=== PATIENT | female | born 1985 | race Caucasian/White ===

== ENCOUNTER 2022-08-27 05:25 | Inpatient (IN) | payer BC ==
[2022-08-26 12:27] LABS: Hemoglobin 11.9 g/dL (12.0-15.5); Platelet Count 199 10x3/uL (150-450)
[2022-08-26 12:34] LABS: SARS-CoV-2 NAA Rapid Test Not Detected (NotDetected)
[2022-08-26 12:46] LABS: Syphilis Antibody Nonreactive (Nonreactive); Syphilis Antibody Index 0.03 S/CO (<1.00 Non-Reactive)
[2022-08-26 12:48] LABS: HBSAg Index 0.21 S/CO (0-0.99); Hep B Surf Ag Non-Reactive S/CO (NonReactive)
[2022-08-27 06:23] VITALS: BMI 41.2
[2022-08-27] MEDS ORDERED: Promethazine HCl 25 MG SUPP PR PRN (07:16)
[2022-08-27] MEDS ORDERED: Ondansetron PF 4 MG/2 ML Vial IVP PRN ×3 (07:16→11:24)
[2022-08-27] MEDS ORDERED: Naloxone HCl 0.4 mg/ml Vial IVP PRN ×2 (07:16)
[2022-08-27] MEDS ORDERED: Naloxone HCl 0.4 mg/ml Vial IV PRN (07:16)
[2022-08-27] MEDS ORDERED: Fentanyl 100 MCG/2 ML VIAL SLOW IVP PRN (07:16)
[2022-08-27] MEDS ORDERED: Moisturizing Cream (Eucerin) 113 GM JAR TOP PRN (07:16)
[2022-08-27] MEDS ORDERED: Ketorolac Tromethamine 30 MG/ML VIAL IVP PRN (07:16)
[2022-08-27] MEDS ORDERED: Meperidine HCl/PF 25 MG/ML VIAL SLOW IVP PRN (07:16)
[2022-08-27] MEDS ORDERED: Promethazine HCl 25 MG/ML VIAL IM PRN ×2 (07:16→07:26)
[2022-08-27] MEDS ORDERED: diphenhydrAMINE 50 MG/ML VIAL IVP PRN (07:16)
[2022-08-27] MEDS ORDERED: Ondansetron HCl/PF 4 MG/2 ML Vial IVP PRN (07:16)
[2022-08-27] MEDS ORDERED: Morphine PF 10 MG/10 ML VIAL ONE (07:22)
[2022-08-27] MEDS ORDERED: PHENYLEPHRINE-NS 100 MCG/ML 10 ML SYRINGE ONE (07:23)
[2022-08-27] MEDS ORDERED: Ketorolac Tromethamine 30 MG/ML VIAL ONE (07:23)
[2022-08-27] MEDS ORDERED: Glycopyrrolate 0.2 MG/ML 5 ML SYRINGE ONE (07:23)
[2022-08-27] MEDS ORDERED: Phenylephrine 40 MG/NS 250 ML 250 ML ONE (07:23)
[2022-08-27] MEDS ORDERED: Ondansetron PF 4 MG/2 ML Vial ONE (07:23)
[2022-08-27] MEDS ORDERED: Oxytocin 10 UNITS/ML VIAL ONE (07:23)
[2022-08-27] MEDS ORDERED: Dexamethasone 4 mg/ml Vial ONE (07:23)
[2022-08-27] MEDS ORDERED: hydrALAZINE 20 MG/ML VIAL SLOW IVP PRN ×2 (07:26→11:24)
[2022-08-27] MEDS ORDERED: Famotidine/PF 20 mg/2ml Vial SLOW IVP PRN (07:26)
[2022-08-27] MEDS ORDERED: Bicitra 30 ML UDCUP PO PRN (07:26)
[2022-08-27] MEDS ORDERED: Communication Order-Pharmacy FS SCH (07:30)
[2022-08-27] MEDS ORDERED: CEFAZOLIN 2 GM in Sodium Chloride 0.9% 100 ML IVPB SCH (07:30)
[2022-08-27] MEDS ORDERED: Ketorolac Tromethamine 30 MG/ML VIAL IVP SCH (07:30)
[2022-08-27] MEDS ORDERED: Lactated Ringer's 1,000 ML IV SCH (07:30)
[2022-08-27] MEDS ORDERED: Clindamycin/D5W 900 MG in Premix Bag 1 BAG IVPB SCH (07:45)
[2022-08-27] MEDS ORDERED: Methylergonovine 0.2 MG/ML VIAL IM PRN (11:24)
[2022-08-27] MEDS ORDERED: Boostrix 0.5 ML (Tdap) VIAL (>/=7 yrs of age) IM ONE (11:24)
[2022-08-27] MEDS ORDERED: Lanolin Ointment 7 GM TUBE TOP PRN (11:24)
[2022-08-27] MEDS ORDERED: Misoprostol 200 MCG TAB PR PRN (11:24)
[2022-08-27] MEDS ORDERED: NS w/ Oxytocin 30 units 500 ML IV SCH (11:24)
[2022-08-27] MEDS ORDERED: Simethicone Chewable 80 MG TAB PO PRN (11:24)
[2022-08-27] MEDS ORDERED: diphenhydrAMINE 25 MG CAP PO PRN (11:24)
[2022-08-27] MEDS ORDERED: HYDROcodone/Acetaminophen 5/325 mg Tablet PO PRN (20:00)
[2022-08-27] MEDS: Ferrous Sulfate 325 MG TAB PO SCH (21:04)
[2022-08-27] MEDS: Docusate 100 MG CAP PO SCH (21:54)
[2022-08-28] MEDS: Ibuprofen 800 MG TAB PO SCH ×3 (04:49→22:07)
[2022-08-28 05:34] LABS: Hemoglobin 10.4 g/dL (12.0-15.5); Mean Corpuscular HGB CONC 33.8 g/dL (32.0-36.0); Mean Corpuscular Hemoglobin 30.3 pg (27.0-33.0); Mean Corpuscular Volume 89.8 fl (81.6-98.3); Mean Platelet Volume 12.3 fl (7.4-10.4); Platelet Count 156 10x3/uL (150-450); RBC Distribution Width 14.3 % (11.5-14.5); Red Blood Cell (RBC) Count 3.43 10x6/uL (3.90-5.03); White Blood Cell (WBC) Count 7.8 10x3/uL (3.5-10.5)
[2022-08-28] MEDS: HYDROcodone/Acetaminophen 5/325 mg Tablet PO PRN ×2 (09:06→22:08)
[2022-08-28] MEDS: Docusate 100 MG CAP PO SCH ×2 (09:07→22:07)
[2022-08-28] MEDS: Prenatal Vitamin 1 TAB PO SCH (09:07)
[2022-08-28] MEDS: Ferrous Sulfate 325 MG TAB PO SCH ×2 (09:07→22:11)
[2022-08-29] MEDS: Ibuprofen 800 MG TAB PO SCH ×2 (05:33→13:15)
[2022-08-29] MEDS: HYDROcodone/Acetaminophen 5/325 mg Tablet PO PRN ×2 (07:50→13:14)
[2022-08-29] MEDS: Prenatal Vitamin 1 TAB PO SCH (07:50)
[2022-08-29] MEDS: Docusate 100 MG CAP PO SCH (07:51)
[2022-08-29] MEDS: Ferrous Sulfate 325 MG TAB PO SCH (07:54)
[2022-08-29 09:18] VITALS: BP 109/65; TEMP 98
== END 2022-08-29 14:45 | disposition home or self-care (01) | DRG 787 ==
LOC: CSHLD 05:25 → CSHPP 12:01
PROVIDERS: ADMIT Obstetrics & Gynecology; ATTEND Obstetrics & Gynecology
PROC: 10D00Z1 Extraction of Products of Conception, Low, Open Approach (ICD-10-PCS; principal; 2022-08-27)
DX: O34.211 Maternal care for low transverse scar from previous cesarean delivery (principal); D68.69 Other thrombophilia; O99.12 Other diseases of the blood and blood-forming organs and certain disorders involving the immune mechanism complicating childbirth; Z3A.39 39 weeks gestation of pregnancy; Z20.822 Contact with and (suspected) exposure to COVID-19; Z37.0 Single live birth; O99.824 Streptococcus B carrier state complicating childbirth; O24.420 Gestational diabetes mellitus in childbirth, diet controlled; Z90.49 Acquired absence of other specified parts of digestive tract; Z79.82 Long term (current) use of aspirin; Z88.1 Allergy status to other antibiotic agents; Z88.0 Allergy status to penicillin
CPT/HCPCS: 36415; 51702; 85014; 85018; 85027; 85049; 86780; 86850; 86900; 86901; 87340; J1100; J1885; J2274; J2405; J2590; U0002